=== PATIENT | female | born 1960 | race Hispanic/Latino ===

== ENCOUNTER 2017-02-02 13:50 | Inpatient (IN) | payer MEDICAID, SELFPAY ==
--- NOTE | 2017-02-02 14:43 | RAD ---
RADIOGRAPH CHEST 1 VIEW: ATTENTION MINNIE IN BILLING: Despite the entry in [employer], [employer], and [employer], this is a 1 view study, not a 2 view. HISTORY: 66-year-old female with cough. FINDINGS: There are no air space densities, pulmonary edema, pneumothorax, or cardiomegaly. The lateral costo phrenic angles are sharp. IMPRESSION: No acute cardiopulmonary findings. thomas POS: [facility]
[2017-02-02 14:50] LABS: #Basophils 0.1 thou/uL (0.0-0.2); #Eosinphils 0.1 thou/uL (0.0-0.7); #Lymphocytes 2.6 thou/uL (1.20-3.40); #Monocytes 0.8 thou/uL (0.11-0.59); #Neutrophils 10.5 thou/uL (1.40-6.50); %Basophils 0.5 % (0.0-1.0); %Eosinophils 0.5 % (0.0-10.0); %Lymphocytes 18.6 % (21.0-51.0); %Monocytes 5.5 % (0.0-10.0); Mean Platelet Volume 7.8 fL (7.4-10.4); Red Blood Cell (RBC) Count 4.89 mill/uL (4.20-5.40); White Blood Cell (WBC) Count 13.9 thou/uL (4.8-10.8)
[2017-02-02 15:10] LABS: ALT (SGPT) 9 U/L (8-55); AST (SGOT) 15 U/L (5-34); Alkaline Phosphatase 102 U/L (40-150); Anion Gap 15 mmol/L (10-20); BUN (Urea Nitrogen) 39 mg/dL (9.8-20.1); Bilirubin, Total 0.6 mg/dL (0.2-1.2); Calc. Creatinine Clearance 0 mL/min (70-130); Calcium 10.5 mg/dL (7.8-10.44); Carbon Dioxide 26 mmol/L (22-29); Chloride 100 mmol/L (98-107); Estimated GFR-MDRD 47; Globulin 4.1 g/dL (2.4-3.5); Protein, Total 8.5 g/dL (6.0-8.3)
--- NOTE | 2017-02-02 15:29 | RAD ---
RADIOGRAPH NECK SOFT TISSUES TWO VIEWS: History: 56-year-old female with throat pain and dysphagia for several days. FINDINGS: No prevertebral, retropharyngeal, supraglottic, or epiglottic soft tissue swelling. The cervical por tion of the trachea appears to be patent and clear. No radiopaque foreign body. Incidentally, moderately large anterior endplate marginal osteophytes protrude into the prevertebral space at C5-6. No radiopaque foreign body. IMPRESSION: No acute findings. POS: [facility]
--- NOTE | 2017-02-02 16:05 | CT ---
CT HEAD WITHOUT CONTRAST: 02/02/17 Multiple axial tomograms obtained through the head without IV enhancement. HISTORY: Facial droop. Comparison made to CT of 07/16/16. Ventricles have normal size and position. There is abnormal lucency in the brain stem at the level of the cerebellar peduncles to the left of midline. This is concerning for brain stem infarct. A similar lucency was seen on the prior exam, al though this is more prominent today. Suggests further evaluation with MRI to better evaluate this sissy cency. There are moderately severe chronic ischemic white matter changes in both cerebral hemispheres. Prob able old focal cortical infarct in the right anterior frontal cortex. Old occipital lobe infarct whi ch was present previously. No evidence of hemorrhage or mass effect. IMPRESSION: 1. Lucency in the brain stem at the level of the cerebellar peduncles to the left of midline, w orrisome for brain stem infarct. 2. Chronic severe white matter changes and evidence of old right frontal lobe infarct and a lar ge area of encephalomalacia involving the left occipital lobe. Recommend MRI to assess the brain stem and also assess for acute lacunar infarcts which may not be a pparent given setting of severe chronic ischemic white matter change. POS: [place]
[2017-02-02] MEDS ORDERED: Morphine Sulfate 2 MG/ML SYRINGE ONE (16:10)
[2017-02-02] MEDS ORDERED: cefTRIAXone\\ROCEPHIN 1 GM VIAL ONE (16:10)
[2017-02-02] MEDS ORDERED: Ondansetron HCl/PF 4 MG/2 ML Vial ONE (16:10)
--- NOTE | 2017-02-02 18:09 | RAD ---
PORTABLE CHEST: 02/02/17 HISTORY: Productive cough. The lungs are clear. No evidence of infiltrate. The heart and mediastinum unremarkable. Vascular mar kings are normal. IMPRESSION: Unremarkable portable chest. POS: [facility]
[2017-02-02] MEDS ORDERED: Ondansetron HCl/PF 4 MG/2 ML Vial IVP PRN ×2 (22:02→22:04)
[2017-02-02] MEDS ORDERED: Acetaminophen 325 MG TAB PO PRN ×2 (22:02→22:04)
[2017-02-02] MEDS ORDERED: Ondansetron ODT 4 MG TAB SL PRN (22:04)
[2017-02-02] MEDS ORDERED: Dextrose 5% in Water 1,000 ML IV PRN (22:07)
[2017-02-02] MEDS ORDERED: HumaLOG 300 UNITS/3 ML VIAL SC PRN ×2 (22:07)
[2017-02-02] MEDS ORDERED: Dextrose 50% Abboject 50 ML SYRINGE SLOW IVP PRN (22:07)
[2017-02-02] MEDS ORDERED: Dextrose 5 %-0.45 % NaCl 1,000 ML IV SCH (22:15)
[2017-02-02] MEDS ORDERED: cefTRIAXone\\ROCEPHIN 1 GM in Sodium Chloride 0.9% 100 ML IVPB SCH (22:15)
[2017-02-02] MEDS: Sodium Chloride 0.9% 1,000 ML IV SCH (22:42)
[2017-02-02] MEDS: Azithromycin 500 MG in Sodium Chloride 0.9% 250 ML 250 ML IVPB SCH (22:42)
[2017-02-02] MEDS: HYDROcodone/Acetaminophen 5/325 mg Tablet PO PRN (23:00)
[2017-02-02] MEDS: Diabetic Tussin 200 MG/10 ML UDCUP PO PRN (23:40)
--- NOTE | 2017-02-03 01:27 | HP ---
DATE OF ADMISSION: 02/02/2017 CHIEF COMPLAINT: Cough, sore throat, chest congestion. HISTORY OF PRESENT ILLNESS: Patient is a 56-year-old female with past medical history of hypertension, diabetes mellitus type 2, stroke, dysphagia, arthritis , came to the ER because of cough and sore throat. Cough is present for the last 3 days, coughing with some sputum production, with some dyspnea also, sputum white in color, complains of sore throat from coughing. Denies any fever , but complains of chills, denies any chest pain, denies any dizziness, denies any lightheadedness. Denies any headache, denies any nausea. Denies any vomiting. PAST MEDICAL HISTORY: As per HPI. PAST SURGICAL HISTORY: PEG tube, . SOCIAL HISTORY: Denies smoking, denies alcohol, denies any drugs. FAMILY HISTORY: Denies any heart problems. REVIEW OF SYSTEMS: Constitutional: Positive for chills. Denies fever. Eyes: No vision problems. Ears: Denies hearing loss. Neck: Denies neck pain. Cardiovascular system: Denies any chest pain. Throat: Positive for throat pain. Cardiovascular: Denies any chest pain, denies palpitations. Respiratory system: Positive for cough and sputum production. Integument: Denies any rash. Psychiatric: Denies anxiety. Musculoskeletal: Denies any joint deformities. All other review of systems are reviewed and are negative. PHYSICAL EXAMINATION: CONSTITUTIONAL/VITAL SIGNS: At the time of H and P performed, blood pressure is 140/70, afebrile, pulse ox 97%. GENERAL: This patient appears tired. Anterior naris patent. Nose normal. Ears normal. Teeth intact. Oral cavity, throat postnasal drainage seen. No erythema or no exudates seen. Nares, slight erythema present. No exudates seen. NECK: Supple. No JVD. CARDIOVASCULAR SYSTEM: S1, S2 present. Regular rate and rhythm. No murmurs, no rubs, no gallops. RESPIRATORY SYSTEM: To system Positive for rhonchi and wheezing. No erythema is seen. GASTROINTESTINAL: Abdomen is soft, nontender. Positive for PEG tube. MUSCULOSKELETAL: No edema. CRANIAL NERVOUS SYSTEM: Awake, follows commands. Speech clear. PSYCHIATRIC: Mood is appropriate at this time. LABORATORY DATA: At the time of H and P performed, white count 13.9, hemoglobin 14.2, platelet count is 303. BMP showed sodium 137, potassium 4.3, chloride 100, CO2 of 23, BUN 39, creatinine 1.19. Toxicology: Beta- hydroxybutyrate is 1.38. CT head without contrast, positive for lucency in the brainstem at the level of cerebellar particles, peduncles were reason for brainstem infarct, chronic severe white matter changes seen. no acute findings. ASSESSMENT AND PLAN: The patient is a 56-year-old female: 1. Acute bronchitis. Plan to start patient on broad-spectrum antibiotics. Plan to consult. Plan to monitor the patient closely and we will do p.r.n. breathing treatments and p.r.n. cough suppressants also. 2. Sore throat, possible secondary to coughing. Monitor the patient. Plan to check strep throat culture also. 3. Rule out stroke and history of cerebrovascular accident plus dysphagia. Continue tube feeds. Monitor patient closely. Plan to do MRI brain to rule out any new stroke and we will follow the patient. We will get PT, OT, speech therapy, and rehabilitation evaluation also. If repeat MRI is positive, then we will consult Neurology also. 4. Hypertension. Monitor blood pressure. Continue home blood pressure medications. 5. Diabetes mellitus. Monitor blood sugars. We will do insulin sliding scale. The case was discussed in detail with the patient. TYLER
[2017-02-03 06:57] LABS: Anion Gap 11 mmol/L (10-20); BUN (Urea Nitrogen) 22 mg/dL (9.8-20.1); Calc. Creatinine Clearance 77 mL/min (70-130); Calcium 8.7 mg/dL (7.8-10.44); Carbon Dioxide 23 mmol/L (22-29); Chloride 106 mmol/L (98-107); Estimated GFR-MDRD 88
[2017-02-03 06:59] LABS: #Basophils 0.1 thou/uL (0.0-0.2); #Eosinphils 0.1 thou/uL (0.0-0.7); #Lymphocytes 3.3 thou/uL (1.20-3.40); #Monocytes 0.8 thou/uL (0.11-0.59); #Neutrophils 5.4 thou/uL (1.40-6.50); %Basophils 0.7 % (0.0-1.0); %Eosinophils 1.1 % (0.0-10.0); %Lymphocytes 33.9 % (21.0-51.0); %Monocytes 8.5 % (0.0-10.0); Hematocrit 32.4 % (36.0-47.0); Mean Platelet Volume 7.6 fL (7.4-10.4); Red Blood Cell (RBC) Count 3.75 mill/uL (4.20-5.40); White Blood Cell (WBC) Count 9.7 thou/uL (4.8-10.8)
[2017-02-03] MEDS ORDERED: FLU VACC QS2017-18 36 mo. & older 0.5 ML SYRINGE IM ONE (09:00)
[2017-02-03] MEDS: Diabetic Tussin 200 MG/10 ML UDCUP PO PRN ×3 (09:31→22:51)
[2017-02-03] MEDS: HYDROcodone/Acetaminophen 5/325 mg Tablet PO PRN ×2 (09:32→17:28)
[2017-02-03] MEDS: Heparin 5,000 UNITS/ML VIAL SC SCH ×4 (09:33→21:08)
[2017-02-03] MEDS ORDERED: Aspirin 325 MG TAB PER TUBE SCH (10:27)
--- NOTE | 2017-02-03 10:47 | PDOC.PN ---
- Subjective Encounter Start Date: 02/03/17 Encounter Start Time: 10:45 Ms. Ty is still having some pain in her neck, and a sore throat. She also notes some abdominal pain as well. - Objective MAR Reviewed: Yes Vital Signs & Weight: Vital Signs (12 hours) Temp Pulse Resp BP Pulse Ox 02/03/17 07:39 98.2 F 78 16 107/67 98 02/03/17 07:05 97 02/03/17 07:03 75 16 97 02/03/17 03:50 97.9 F 72 20 108/61 94 L 02/03/17 02:41 69 14 97 02/02/17 23:53 98.4 F 98 20 152/85 H 95 Weight Weight 117 lb 3.2 oz I&O: 02/02/17 02/03/17 02/04/17 06:59 06:59 06:59 Intake Total 2230 Output Total 0 Balance 2230 Result Diagrams: 02/03/17 05:45 02/03/17 05:45 Additional Labs: Accuchecks 02/03/17 02/02/17 02/02/17 05:45 23:59 21:45 POC Glucose 107 154 H 69 L Phys Exam - Physical Examination HEENT: PERRLA Respiratory: no wheezing, no rales, no rhonchi, clear to auscultation bilateral Cardiovascular: RRR, no significant murmur Gastrointestinal: soft, non-tender, positive bowel sounds Musculoskeletal: no edema Dx/Plan (1) Bronchitis, acute Code(s): J20.9 - ACUTE BRONCHITIS, UNSPECIFIED Status: Acute (2) DM2 (diabetes mellitus, type 2) Status: Chronic Comment: (3) Dysphagia as late effect of cerebrovascular accident (CVA) Code(s): I69.391 - DYSPHAGIA FOLLOWING CEREBRAL INFARCTION Status: Chronic (4) HLD (hyperlipidemia) Code(s): E78.5 - HYPERLIPIDEMIA, UNSPECIFIED Status: Chronic Qualifiers: (5) HTN (hypertension) Code(s): I10 - ESSENTIAL (PRIMARY) HYPERTENSION Status: Chronic Qualifiers: - Plan * Sore throat and neck pain- ? etiology, this may be due to Cervical spine disc disease * Possible brain stem CVA- will follow-up with MRI * Abdominal pain- ? due to coughing- will check an ultrasound * HTN- blood pressure- on the lower side- will continue IV hydration * DM - diabetes- blood glucose is stable * Bronchitis-continue Azithromycin and Rocephin
--- NOTE | 2017-02-03 14:39 | ULT ---
ABDOMINAL ULTRASOUND: Date: 02-03-17 History: Abdominal pain. FINDINGS: Gallbladder is not visualized consistent with patient's report history of prior cholecyste ctomy. The common duct measures 0.5 cm in diameter which is within normal limits. Visualized portions of the pancreas, visualized portions of the IVC, liver, spleen, bilateral kidney s demonstrate a normal sonographic appearance. The right kidney measures 9.7 cm in length. The left kidney measures 5.7 cm in length. There is mild atherosclerotic plaque seen within the abdominal aorta. IMPRESSION: 1. Cholecystectomy. 2. Atherosclerotic plaque in the abdominal aorta. POS: [facility]
[2017-02-03 14:50] VITALS: BMI 20.1
[2017-02-03] MEDS: Metoclopramide HCl 10 MG/10 ML UDCUP PER TUBE SCH ×3 (17:24→21:08)
[2017-02-03] MEDS: cefTRIAXone\\ROCEPHIN 1 GM in Sodium Chloride 0.9% 100 ML IVPB SCH ×2 (17:51→19:05)
[2017-02-03] MEDS: Sodium Chloride 0.9% 1,000 ML IV SCH (19:03)
--- NOTE | 2017-02-03 20:16 | MRI ---
EXAM: BRAIN MRI WITHOUT CONTRAST 02/03/17 HISTORY: CVA. Right sided facial weakness and numbness. COMPARISON: None. TECHNIQUE: Brain MRI is performed without gadolinium administration. Multisequential, multiplanar imaging is pe rformed. FINDINGS: No hemorrhage on the axial gradient echo sequence. Central arterial flow voids are maintained. Absent restricted diffusion. The calvarium has a normal marrow signal intensity. Midline brain parenchymal structures are unremar kable, with the exception of the medial left occipital lobe. With regards to the medial left occipit al lobe, there is gliotic and malacic change. There are scattered T2 and FLAIR white matter hyperint ensities, likely due to chronic small vessel ischemic change. Bilateral mucosal thickening in the paranasal sinuses. Partial opacification of the right ethmoid ai r cells. IMPRESSION: 1. Paranasal sinuses and right mastoid air cell opacification as above. 2. Absent restricted diffusion. No acute infarct. 3. Chronic small vessel ischemic change white matter. 4. Malacic and gliotic changes involving the left occipital lobe. POS: [facility]
[2017-02-03] MEDS ORDERED: Pravastatin Sodium 40 MG TAB PER TUBE SCH (21:00)
[2017-02-03] MEDS ORDERED: Atorvastatin Calcium 10 MG TAB PER TUBE SCH (21:00)
[2017-02-03] MEDS: Azithromycin 500 MG in Sodium Chloride 0.9% 250 ML 250 ML IVPB SCH (21:08)
[2017-02-03] MEDS: Famotidine/PF 20 mg/2ml Vial SLOW IVP SCH (21:09)
[2017-02-04] MEDS: Sodium Chloride 0.9% 1,000 ML IV SCH (01:18)
[2017-02-04 07:49] VITALS: TEMP 98.5
[2017-02-04 08:45] VITALS: BP 122/67
[2017-02-04] MEDS: Metoclopramide HCl 10 MG/10 ML UDCUP PER TUBE SCH (08:56)
[2017-02-04] MEDS: Famotidine/PF 20 mg/2ml Vial SLOW IVP SCH (08:58)
[2017-02-04] MEDS: Heparin 5,000 UNITS/ML VIAL SC SCH (08:58)
[2017-02-04] MEDS ORDERED: Atenolol 50 MG TAB PER TUBE SCH (09:00)
[2017-02-04] MEDS ORDERED: Aspirin 81 mg Enteric Coated Tablet PER TUBE SCH (09:00)
[2017-02-04] MEDS ORDERED: Clopidogrel Bisulfate 75 MG TAB PER TUBE SCH (09:00)
[2017-02-04] MEDS ORDERED: CLOPIDOGREL BISULFATE 75 MG PER TUBE SCH (09:00)
--- NOTE | 2017-02-04 09:17 | CON ---
DATE OF CONSULTATION: 02/03/2017 REFERRING PHYSICIAN: Dr. Freddy Dawn MD REASON FOR CONSULTATION: Dysarthria. HISTORY OF PRESENT ILLNESS: Ms. Rosenberg is a pleasant 56-year-old female, who has been cons ulted for evaluation of dysarthria and to rule out stroke. History is obtained from daughter, who w as present at the bedside. Daughter reports that the patient has a history of stroke in 2007, as we ll as June or July of this year, her most recent stroke in this year resulted in the right-sided w eakness, left-sided numbness, dysarthria, and dysphagia. She had required a PEG tube placement due to the dysphagia. She has episodes of aspiration even with her own saliva. She has not been able t o take anything by mouth. Since that time, she reports that over the past 2 days, she has been havi ng a persistent cough with productive phlegm. This was not getting better and thus they decided to bring her to the [facility] for further evaluation. She has not noticed any worsenin g of numbness or weakness in her upper and lower extremities. There was no changes in her vision. She has not complained of any headache, chest pain, palpitation, or difficulty with breathing. PAST MEDICAL HISTORY: Significant for hypertension, diabetes, history of stroke, dysphagia, resulti ng in a requirement for PEG tube placement, and arthritis. PAST SURGICAL HISTORY: Significant for PEG tube placement and . SOCIAL HISTORY: She does not smoke, drink alcohol, or use illicit drugs. She is currently living w ith her family. FAMILY HISTORY: Noncontributory. CURRENT MEDICATIONS: Please review MAR. ALLERGIES: No known drug allergies. REVIEW OF SYSTEMS: As mentioned in the HPI, otherwise negative. PHYSICAL EXAMINATION: VITAL SIGNS: Blood pressure 113/57, pulse of 73, temperature 98.1, respirations of 18, and O2 satur ations of 96% on room air. GENERAL: Cachectic appearing female in no apparent distress. RESPIRATORY: Clear to auscultation bilaterally. CARDIOVASCULAR: Regular rate and rhythm. NEUROLOGIC: Mental status: The patient is awake, alert, and oriented x3. Speech and language: Mi ldly dysarthric speech noted. Cranial nerves: Pupils are 3 mm and reactive. Visual denis are int act. Extraocular muscles are intact. No nystagmus is noted. Face is symmetric. Tongue and uvula midline. Motor exam showed normal tone and bulk with 4/5 strength in the right upper extremity and 3/5 strength in the right lower extremity, and 5/5 strength in left upper and left lower extremity. Sensory: Diminished sensation on the left side compared to the right side. Deep tendon reflexes h yperreflexic in both upper and lower extremities. Babinski: Plantar responses flexion bilaterally. Coordination intact to [id number] and finger tapping bilaterally. LABORATORY DATA: Reviewed, which included CBC, BMP, which is significant for hemoglobin 10.8, hemat ocrit 32.4, otherwise unremarkable. IMAGING STUDIES: MRI brain without contrast was reviewed, which showed no acute intracranial abnorm ality. IMPRESSION: 1. Cough and sore throat, likely acute bronchitis. 2. Dysarthria, due to recent stroke. Ms. Rosenberg is a pleasant 56-year-old female, who presented with the persistent cough and so re throat with nonproductive sputum. This is likely secondary to acute bronchitis. I have reviewed her MRI brain, which showed no acute intracranial abnormality. At this time, we will recommend con tinuing current antiplatelet therapy. Continue supportive care. Continue current medical managemen t. No further neurological workup needed from my standpoint. Thank you for consultation.
--- NOTE | 2017-02-04 15:52 | DIS ---
DATE OF ADMISSION: 02/02/2017 DATE OF DISCHARGE: 02/04/2017 PRIMARY CARE PHYSICIAN: Dr. Janene Jackson. DISCHARGE DIAGNOSES: 1. Acute bronchitis. 2. Right mastoiditis. 3. Odynophagia. 4. 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 5. History of cerebrovascular disease. 6. Diabetes mellitus type 2. 7. Essential hypertension. CONSULTATIONS: Dr. Rica Garrido with Neurology. PROCEDURES: 1. Brain MRI with no acute ischemic event. 2. Abdominal ultrasound, significant for prior cholecystectomy, no acute intra-abdominal pathology. HISTORY AND PHYSICAL: Ms. Shakira Wallace is a 56-year-old Latin-Polish female, who was presented to the emergency department on 02/02/2017 for complaints of sore throat and difficulty swallowing aleksey use of the pain. Labs were fairly stable except for beta hydroxybutyrate elevated at 1.38. CT scan of the head was p ositive for lucency of the brainstem at the level of the cerebral pedicles and were concerned for br ainstem infarct. The patient was subsequently admitted for further workup. HOSPITAL COURSE: The patient was seen and examined by Dr. Minaya and admitted to the hospital. MRI was ordered, PT, OT and speech therapy and rehab evaluation was also ordered. Neurology was consulted. Overall, the patient remained stable, sore throat was improved, MRI was performed and later resulted as negative for acute infarct. Abdominal ultrasound done for bleeding, abdominal pain was unremark able. Diet remained stable. She tolerated her tube feeds through the day and on 02/04/2017 was see n by Dr. Garrido. He felt this was all secondary to bronchitis with no acute neurologic event and nega tive MRI and cleared for discharge home. Patient's sore throat was improved; she was tolerating her medicines and her tube feeds, and was sta ble for discharge. MRI did show right mastoiditis and mastoid air cell opacification. PHYSICAL EXAMINATION: The patient was seen and examined on the date of discharge. Discharge plan and disposition were discussed with the patient and her son [id number] at the [facility]. DISCHARGE MEDICATIONS: 1. Augmentin elixir 900 mg p.o. b.i.d. for 10 days. 2. Aspirin 81 mg per feeding tube daily. 3. Atenolol 50 mg per feeding tube b.i.d. 4. Plavix 75 mg per feeding tube daily. 5. Lisinopril 10 mg per feeding tube daily. 6. Reglan 5 mg per feeding tube q.4 hours p.r.n. nausea. 7. Pravastatin 40 mg per tube at bedtime. 8. Metformin 1000 mg per feeding tube b.i.d. 9. Prednisolone 20 mg every morning, decreased by 5 mg daily until tapered off. FOLLOWUP APPOINTMENTS: Primary care physician within a week. DISCHARGE CONDITION: Stable. DISPOSITION: Being discharged home via private vehicle. Return to the emergency department for worsening symptoms. test engineering manager was able to secure her spon sored tube feeds for 30-60 days if they were interested.
== END 2017-02-04 11:37 | disposition home or self-care (01) | DRG 202 ==
LOC: ERS 13:50 → 2SE 21:26
PROVIDERS: ADMIT Internal Medicine; ATTEND Internal Medicine
DX: J20.9 Acute bronchitis, unspecified (principal); I69.351 Hemiplegia and hemiparesis following cerebral infarction affecting right dominant side; I10 Essential (primary) hypertension; I69.391 Dysphagia following cerebral infarction; Z93.1 Gastrostomy status; H70.91 Unspecified mastoiditis, right ear; E11.9 Type 2 diabetes mellitus without complications; I69.322 Dysarthria following cerebral infarction; Z23 Encounter for immunization; E78.5 Hyperlipidemia, unspecified; E86.0 Dehydration
CPT/HCPCS: 36415; 36416; 70360; 70450; 70551; 71010; 71020; 76700; 80048; 80053; 82010; 85025; 87040; 90471; 90682; 94640; A4216; G0008; G8978-GP-CK; G8979-GP-CI; G8987-GO-CL; G8988-GO-CJ; G8999-GN-CJ; G9186-GN-CI; J0456; J0696; J1644; J2270; J2405; J2920; J7050; J7620; Q2036; S0028

== ENCOUNTER 2017-03-31 17:36 | Emergency (ER) | payer MEDICAID, SELFPAY ==
[~2017-03-31 17:36] MED LIST: ISOVUE-370 76%-LOCM 1 ML ONE
[2017-03-31 18:50] LABS: Hematocrit 42.9 % (36.0-47.0); Mean Platelet Volume 7.5 fL (7.4-10.4); Red Blood Cell (RBC) Count 4.79 mill/uL (4.20-5.40); White Blood Cell (WBC) Count 24.5 thou/uL (4.8-10.8)
[2017-03-31 19:05] LABS: ALT (SGPT) 15 U/L (8-55); AST (SGOT) 21 U/L (5-34); Alkaline Phosphatase 103 U/L (40-150); Anion Gap 17 mmol/L (10-20); BUN (Urea Nitrogen) 14 mg/dL (9.8-20.1); Bilirubin, Total 0.8 mg/dL (0.2-1.2); Calc. Creatinine Clearance 0 mL/min (70-130); Calcium 10.6 mg/dL (7.8-10.44); Carbon Dioxide 25 mmol/L (22-29); Chloride 97 mmol/L (98-107); Estimated GFR-MDRD 77; Lipase 12 U/L (8-78); Protein, Total 8.5 g/dL (6.0-8.3)
[2017-03-31 19:16] LABS: Band 16 % (5-11); Neutrophil 74 % (42-75); Polychromasia SLIGHT = 2-3 cells (100X) (0-2/hpf); Vacuoles SLIGHT
--- NOTE | 2017-03-31 21:30 | RAD ---
AP VIEW CHEST 03/31/17 HISTORY: Nausea and vomiting. Comparison made to previous exam from 02/02/17. AP view chest demonstrates the lungs to be well aerated. No evidence of active intrathoracic disease is seen. No evidence of effusions, pneumonia, or pneumothorax seen. IMPRESSION: Unremarkable AP view chest. POS: [facility]
--- NOTE | 2017-03-31 22:45 | CT ---
CONTRAST ENHANCED CT IMAGES ABDOMEN AND PELVIS 03/31/17 HISTORY: Abdominal pain, nausea and vomiting. Contrast enhanced CT images of the abdomen and pelvis demonstrate the lung bases to be unremarkable. There is gastrostomy tube in place. No evidence of free intraperitoneal air is seen. The liver and spleen are unremarkable. The gallbladder has been surgically removed. The pancreas is u nremarkable. Adrenal glands and kidneys are unremarkable. A tiny mid pole left renal calculus is seen with diameter measuring 1 to 2 mm without evidence of hydronephrosis. No dilated loops of small elvin l seen. The colon is unremarkable. No evidence of pelvis masses seen. IMPRESSION: 1. No evidence of bowel obstruction or ileus seen. 2. Tiny nonobstructing mid pole left renal calculus. POS: [facility]
[2017-03-31 22:51] LABS: Bilirubin Negative (Negative); Blood, Urine Negative (Negative); Glucose, Urine (Dipstick) Negative (Negative); Ketone, Urine 15 mg/dL (Negative); Nitrite Negative (Negative); Protein, Urine (Dipstick) Negative (Neg-Trace)
[2017-03-31 22:53] LABS: Bacteria/HPF 1+ HPF (None Seen); Hyaline Casts/LPF 7-10 HYALINE CAST LPF (0-3 Hyaline); Squamous Epithelial 0-3 HPF (0-3)
[2017-03-31 23:01] LABS: RBC/HPF 0-3 HPF (0-3)
[2017-03-31] MEDS ORDERED: Acetaminophen 325 MG TAB ONE (23:38)
== END 2017-03-31 23:56 | disposition home or self-care (01) ==
LOC: ERS 17:36
DX: N39.0 Urinary tract infection, site not specified (principal); I25.2 Old myocardial infarction; E11.9 Type 2 diabetes mellitus without complications; E78.5 Hyperlipidemia, unspecified; I10 Essential (primary) hypertension; M19.90 Unspecified osteoarthritis, unspecified site; F32.9 Major depressive disorder, single episode, unspecified; Z79.84 Long term (current) use of oral hypoglycemic drugs; Z79.82 Long term (current) use of aspirin; Z79.899 Other long term (current) drug therapy
CPT/HCPCS: 36415; 71010; 74177; 80053; 81003; 81015; 83690; 85025; 93005; 96361; 96374; J0696

== ENCOUNTER 2018-09-16 02:02 | Emergency (ER) | payer SELFPAY ==
[2018-09-16] MEDS ORDERED: Pantoprazole 40 MG VIAL ONE (02:32)
[2018-09-16] MEDS ORDERED: Ondansetron PF 4 MG/2 ML Vial ONE ×2 (02:32→05:45)
[2018-09-16 02:55] LABS: #Basophils 0.1 thou/uL (0.0-0.2); #Eosinphils 0.1 thou/uL (0.0-0.7); #Lymphocytes 4.1 thou/uL (1.20-3.40); #Monocytes 0.7 thou/uL (0.11-0.59); #Neutrophils 4.6 thou/uL (1.40-6.50); %Basophils 0.6 % (0.0-1.0); %Eosinophils 1.5 % (0.0-10.0); %Lymphocytes 42.9 % (21.0-51.0); %Monocytes 7.1 % (0.0-10.0); %Neutrophils 47.9 % (42.0-75.0); Hemoglobin 12.5 g/dL (12.0-16.0); Mean Corpuscular HGB CONC 33.2 g/dL (32.0-36.0); Mean Corpuscular Hemoglobin 27.1 pg (27.0-31.0); Mean Corpuscular Volume 81.5 fL (78.0-98.0); Mean Platelet Volume 8.5 fL (7.4-10.4); Platelet Count 200 thou/uL (130-400); RBC Distribution Width 12.9 % (11.5-14.5); Red Blood Cell (RBC) Count 4.63 mill/uL (4.20-5.40); White Blood Cell (WBC) Count 9.5 thou/uL (4.8-10.8)
[2018-09-16 03:11] LABS: ALT (SGPT) 9 U/L (8-55); AST (SGOT) 12 U/L (5-34); Alkaline Phosphatase 105 U/L (40-150); Anion Gap 13 mmol/L (10-20); BUN (Urea Nitrogen) 26 mg/dL (9.8-20.1); Bilirubin, Total 0.4 mg/dL (0.2-1.2); CK (CPK) 120 U/L (29-168); Calc. Creatinine Clearance 0 mL/min (70-130); Calcium 10.2 mg/dL (7.8-10.44); Carbon Dioxide 25 mmol/L (22-29); Chloride 101 mmol/L (98-107); Estimated GFR-MDRD 61; Globulin 3.8 g/dL (2.4-3.5); Glucose 194 mg/dL (70-105); Lipase 19 U/L (8-78); Potassium 4.2 mmol/L (3.5-5.1); Protein, Total 7.8 g/dL (6.0-8.3); Sodium 135 mmol/L (136-145)
[2018-09-16 04:00] LABS: Bilirubin Negative (Negative); Blood, Urine Negative (Negative); Clarity CLEAR (Clear); Glucose, Urine (Dipstick) 250 mg/dL (Negative); Leukocyte Small (Negative); Nitrite Negative (Negative); Protein, Urine (Dipstick) Negative (Neg-Trace); Specific Gravity, Urine 1.017 (1.002-1.036); Urobilinogen 0.2 mg/dL (0.2-1.0)
[2018-09-16 04:21] LABS: Bacteria/HPF Rare-Few HPF (None Seen); RBC/HPF 0-3 HPF (0-3); Squamous Epithelial 0-3 HPF (0-3); Transitional Epithelial 0-3 HPF (0-3); Trichomonas/HPF None Seen HPF (None Seen); WBC/HPF 0-3 HPF (0-3); Yeast-All Forms None Seen HPF (None Seen)
[2018-09-16] MEDS ORDERED: Morphine 2 MG/ML SYRINGE ONE (05:44)
--- NOTE | 2018-09-16 08:40 | CT ---
PRELIMINARY REPORT/[facility]/EMERGENCY AFTER HOURS PROCEDURE: EXAM: CT Chest With Contrast EXAM DATE/TIME: 09/16/2018 3:28 AM CLINICAL HISTORY: 58 years old, female; Abdominal pain; Right-sided chest pain; Prior surgery; Patient HX: 58 presents to ED C/O abd pain x4 days, localized to the R side that radiates proximally that has worsened today. PT has an associated cough and diarrhea. PT reports feeling nauseated, but denies emesis. PT is not able to swallow well, but this is chronic. PT has a feeding tube and a HX of stroke (cannot feel left side-baseline). TECHNIQUE: Imaging protocol: Axial computed tomography images of the chest with intravenous contrast. Coronal reformatted images were created and reviewed. COMPARISON: No relevant prior studies available. FINDINGS: Lungs: Normal. No consolidation. No masses. Pleural space: Normal. No pneumothorax. No pleural effusion. Heart: Normal. No cardiomegaly. No pericardial effusion. Aorta: Normal. No aortic aneurysm. Lymph nodes: Unremarkable. No enlarged lymph nodes. Bones/joints: Unremarkable. No acute fracture. Soft tissues: Unremarkable. IMPRESSION: No evidence of active disease in the chest. EXAM: CT Abdomen and Pelvis With Contrast EXAM DATE/TIME: 09/16/2018 3:28 AM CLINICAL HISTORY: 58 years old, female; Abdominal pain; Right-sided chest pain; Prior surgery; Patient HX: 58 presents to ED C/O abd pain x4 days, localized to the R side that radiates proximally that has worsened today. PT has an associated cough and diarrhea. PT reports feeling nauseated, but denies emesis. PT is not able to swallow well, but this is chronic. PT has a feeding tube and a HX of stroke (cannot feel left side-baseline). TECHNIQUE: Imaging protocol: Axial computed tomography images of the abdomen and pelvis with intravenous contras t. Coronal reformatted images were created and reviewed. COMPARISON: No relevant prior studies available. FINDINGS: Tubes, catheters and devices: There is a gastrostomy tube which courses into the stomach in satisfact ory position. ABDOMEN: Liver: There are no focal liver lesions identified. Gallbladder and bile ducts: There has been a cholecystectomy. There is no common bile duct dilation. Pancreas: The pancreas appears normal. No ductal dilatation. Spleen: The spleen is normal. Adrenals: The adrenal glands are normal. Kidneys and ureters: The kidneys appear normal. No hydronephrosis. Stomach and bowel: The stomach is normal. There is no evidence of intestinal perforation or obstruction. The colon is normal. Appendix: No evidence of appendicitis. PELVIS: Bladder: The bladder is normal. Reproductive: The uterus is normal. ABDOMEN and PELVIS: Intraperitoneal space: Normal. No free air. No significant fluid collection. Bones/joints: No acute fracture. No dislocation. Soft tissues: Unremarkable. Vasculature: Normal. No abdominal aortic aneurysm. Lymph nodes: Normal. No enlarged lymph nodes. IMPRESSION: No acute abdominal pelvic pathology. Thank you for allowing us to participate in the care of your patient. Dictated and Authenticated by: Bi Rocha MD 09/16/2018 4:14 AM Central Time ([place] & [place]) FINAL REPORT CHEST CT WITH CONTRAST ABDOMEN CT WITH CONTRAST PELVIC CT WITH CONTRAST: Date: 09/16/18 HISTORY: Right-sided chest pain. Abdominal pain. COMPARISON: None. FINDINGS: CHEST CT: No mediastinal mass, lymphadenopathy, or hematoma. No consolidation or pleural effusion. No pneumotho rax. Trachea and central bronchi are patent. ABDOMEN CT: Surgically absent gallbladder. Appropriate enhancement of the solid organs. No mesenteric mass, lymphadenopathy, free air, or free fluid. Limited evaluation of the alimentary canal by technique. Percutaneous gastric feeding tube is identif ied. No evidence of bowel obstruction. Appendix is not appreciated. No inflammation of the cecal apex . CT PELVIS: Bladder and pelvic structures are unremarkable. IMPRESSION: No acute abnormality in the chest, abdomen, or pelvis. This report is in agreement with the preliminary report by Ed. POS: [facility]
[2018-09-16] MEDS ORDERED: ISOVUE-370 76%-LOCM 1 ML ONE (10:40)
== END 2018-09-16 06:19 | disposition home or self-care (01) ==
LOC: ERS 02:02
DX: R10.11 Right upper quadrant pain (principal); I25.2 Old myocardial infarction; E11.9 Type 2 diabetes mellitus without complications; E78.5 Hyperlipidemia, unspecified; I10 Essential (primary) hypertension; F32.9 Major depressive disorder, single episode, unspecified; Z79.899 Other long term (current) drug therapy; Z79.84 Long term (current) use of oral hypoglycemic drugs
CPT/HCPCS: 71260; 74177; 80053; 81003; 81015; 82550; 83690; 84484; 85025; 87086; 96361; 96372; 96374; 96375; 96376; C9113; J0500; J2270; J2405; Q9966

== ENCOUNTER 2018-12-20 18:41 | Emergency (ER) | payer SELFPAY ==
[2018-12-20 19:40] LABS: #Eosinphils 0.1 thou/uL (0.0-0.7); #Lymphocytes 2.6 thou/uL (1.20-3.40); #Monocytes 0.7 thou/uL (0.11-0.59); #Neutrophils 8.3 thou/uL (1.40-6.50); %Basophils 0.2 % (0.0-1.0); %Eosinophils 1.1 % (0.0-10.0); %Lymphocytes 22.3 % (21.0-51.0); %Monocytes 5.8 % (0.0-10.0); %Neutrophils 70.5 % (42.0-75.0); Hemoglobin 13.1 g/dL (12.0-16.0); Mean Corpuscular HGB CONC 34.4 g/dL (32.0-36.0); Mean Corpuscular Hemoglobin 28.7 pg (27.0-31.0); Mean Corpuscular Volume 83.6 fL (78.0-98.0); Mean Platelet Volume 7.7 fL (7.4-10.4); Platelet Count 252 thou/uL (130-400); RBC Distribution Width 12.3 % (11.5-14.5); Red Blood Cell (RBC) Count 4.57 mill/uL (4.20-5.40); White Blood Cell (WBC) Count 11.8 thou/uL (4.8-10.8)
[2018-12-20] MEDS ORDERED: Morphine 4 MG/ML VIAL ONE ×2 (19:41→21:14)
[2018-12-20] MEDS ORDERED: Ondansetron PF 4 MG/2 ML Vial ONE (19:41)
[2018-12-20 19:56] LABS: Bilirubin Negative (Negative); Blood, Urine Negative (Negative); Clarity Clear (Clear); Glucose, Urine (Dipstick) 150 mg/dL (Negative); Leukocyte Negative Leu/uL (Negative); Nitrite Negative (Negative); Protein, Urine (Dipstick) 20 mg/dL (Neg-Trace); Urobilinogen Normal mg/dL (Less than 2)
[2018-12-20 20:07] LABS: ALT (SGPT) 11 U/L (8-55); AST (SGOT) 13 U/L (5-34); Albumin 4.5 g/dL (3.5-5.0); Alkaline Phosphatase 106 U/L (40-150); Anion Gap 13 mmol/L (10-20); BUN (Urea Nitrogen) 20 mg/dL (9.8-20.1); Bilirubin, Total 0.3 mg/dL (0.2-1.2); Calc. Creatinine Clearance 0 mL/min (70-130); Calcium 10.1 mg/dL (7.8-10.44); Carbon Dioxide 27 mmol/L (22-29); Chloride 103 mmol/L (98-107); Estimated GFR-MDRD 71; Globulin 3.4 g/dL (2.4-3.5); Glucose 185 mg/dL (70-105); Lipase 17 U/L (8-78); Potassium 4.2 mmol/L (3.5-5.1); Protein, Total 7.9 g/dL (6.0-8.3); Sodium 139 mmol/L (136-145)
--- NOTE | 2018-12-20 20:53 | CT ---
CT abdomen and pelvis with IV contrast HISTORY: Abdominal pain. Bleeding around PEG tube. COMPARISON: 04/02/2017. FINDINGS: Mild scarring at the left lung base is stable. Balloon associated with the left upper quadr ant PEG is incompletely inflated. The balloon lies immediately superficial to the stomach wall, deep to the abdominal wall musculature and peritoneal lining. Gallbladder is surgically absent with associated distention of the biliary system. Solid organs are i ntact. No free air or free fluid. IMPRESSION: Left upper quadrant PEG Is now superficial to the gastric lumen, with the balloon partial ly deflated. Findings were called to Dr. Goodman in the emergency department at 204 hours. Code CR. Transcribed Date/Time: 12/20/2018 9:36 PM
--- NOTE | 2018-12-20 22:25 | RAD ---
Abdomen one view HISTORY: PEG tube replacement. FINDINGS: Contrast material placed through the left upper quadrant PEG conforms to the upper gastric body and the gastric fundus. No evidence of leak. Contrast within the urinary system is consistent with recent CT.
== END 2018-12-20 23:06 | disposition home or self-care (01) ==
LOC: ERS 18:41
DX: K94.23 Gastrostomy malfunction (principal); E78.5 Hyperlipidemia, unspecified; I10 Essential (primary) hypertension; F32.9 Major depressive disorder, single episode, unspecified; E11.9 Type 2 diabetes mellitus without complications; I25.2 Old myocardial infarction; Z79.891 Long term (current) use of opiate analgesic; Z79.84 Long term (current) use of oral hypoglycemic drugs; Z86.73 Personal history of transient ischemic attack (TIA), and cerebral infarction without residual deficits; Z79.899 Other long term (current) drug therapy
CPT/HCPCS: 43762; 51701; 74018; 74177; 80053; 81003; 83690; 84484; 85025; 93005; 96374; 96375; 96376; A4353; B4087; J2270; J2405; Q9966

== ENCOUNTER 2019-12-17 17:17 | Emergency (ER) | payer MEDICAID, SELFPAY ==
[~2019-12-17 17:17] MED LIST changes: -ISOVUE-370 76%-LOCM 1 ML ONE; +Iopamidol-370 76% 500 ML 1 ML ONE
[2019-12-17 18:17] LABS: #Basophils 0.1 thou/uL (0.0-0.2); #Eosinphils 0.3 thou/uL (0.0-0.7); #Monocytes 0.7 thou/uL (0.11-0.59); #Neutrophils 5.4 thou/uL (1.40-6.50); %Basophils 0.6 % (0.0-1.0); %Eosinophils 3.3 % (0.0-10.0); %Lymphocytes 31.8 % (21.0-51.0); %Monocytes 7.7 % (0.0-10.0); %Neutrophils 56.6 % (42.0-75.0); Hemoglobin 12.3 g/dL (12.0-16.0); Mean Corpuscular HGB CONC 33.1 g/dL (32.0-36.0); Mean Corpuscular Hemoglobin 27.2 pg (27.0-31.0); Mean Corpuscular Volume 82.2 fL (78.0-98.0); Mean Platelet Volume 8.7 fL (7.4-10.4); Platelet Count 232 thou/uL (130-400); RBC Distribution Width 12.6 % (11.5-14.5); Red Blood Cell (RBC) Count 4.54 mill/uL (4.20-5.40); White Blood Cell (WBC) Count 9.5 thou/uL (4.8-10.8)
[2019-12-17] MEDS ORDERED: Morphine 4 MG/ML VIAL ONE (18:30)
[2019-12-17] MEDS ORDERED: Ondansetron PF 4 MG/2 ML Vial ONE (18:30)
[2019-12-17 18:40] LABS: ALT (SGPT) 11 U/L (8-55); AST (SGOT) 11 U/L (5-34); Albumin 3.7 g/dL (3.5-5.0); Alkaline Phosphatase 108 U/L (40-110); Anion Gap 13 mmol/L (10-20); BUN (Urea Nitrogen) 19 mg/dL (9.8-20.1); Bilirubin, Total 0.4 mg/dL (0.2-1.2); Calc. Creatinine Clearance 0 mL/min (70-130); Calcium 9.4 mg/dL (7.8-10.44); Carbon Dioxide 26 mmol/L (22-29); Chloride 101 mmol/L (98-107); Estimated GFR-MDRD 55; Globulin 3.6 g/dL (2.4-3.5); Glucose 510 mg/dL (70-105); Lipase 25 U/L (8-78); Magnesium 1.8 mg/dL (1.6-2.6); Potassium 4.1 mmol/L (3.5-5.1); Protein, Total 7.3 g/dL (6.0-8.3); Sodium 136 mmol/L (136-145)
--- NOTE | 2019-12-17 20:39 | CT ---
CT ABDOMEN AND PELVIS WITH IV CONTRAST: Date: 12-17-2019 PROVIDED CLINICAL HISTORY: Abdominal pain FINDINGS: Comparison 12-20-2018. There is geographic ground glass opacity redemonstrated in the left infrahilar region, appearing some what more conspicuous than on the prior study. Visualized lung bases appear otherwise clear. The liver, spleen, pancreas, kidneys and adrenal glands demonstrate no significant abnormality. A percutaneous gastrostomy tube is noted within the fundus of the stomach. There is no bowel dilatati on, intraperitoneal fat stranding, free fluid or free air apparent. Nonspecific stranding of the subc utaneous fat about the course of the PEG tube through the anterior abdominal wall. There is conspicuous colonic retention. Vascular calcifications are seen. Changes of prior cholecystectomy. The osseous structures demonstrate no concerning lytic or blastic lesions. IMPRESSION: 1. Geographic ground glass opacity partially visualized involving the left infrahilar region. Dedicat ed follow up chest CT is recommended on a non-emergent basis. 2. Colonic fecal retention suggest constipation. POS: [facility]
== END 2019-12-17 20:35 | disposition home or self-care (01) ==
LOC: ERS 17:17
DX: K94.23 Gastrostomy malfunction (principal); K59.00 Constipation, unspecified; I25.2 Old myocardial infarction; E11.9 Type 2 diabetes mellitus without complications; I10 Essential (primary) hypertension; E78.5 Hyperlipidemia, unspecified; E78.00 Pure hypercholesterolemia, unspecified; M19.90 Unspecified osteoarthritis, unspecified site; F32.9 Major depressive disorder, single episode, unspecified; Z79.84 Long term (current) use of oral hypoglycemic drugs; Z79.899 Other long term (current) drug therapy
CPT/HCPCS: 36415; 43762; 74177; 80053; 83690; 83735; 85025; J2270; J2405; Q9967

== ENCOUNTER 2020-01-18 17:21 | Inpatient (IN) | payer OTHER, SELFPAY ==
[~2020-01-18 17:21] MED LIST changes: +Iopamidol 370 76% 50 ML VIAL FS ONE
[2020-01-18] MEDS ORDERED: Ondansetron PF 4 MG/2 ML Vial ONE ×2 (18:06→21:32)
[2020-01-18 18:29] LABS: #Eosinphils 0.2 thou/uL (0.0-0.7); #Lymphocytes 3.2 thou/uL (1.20-3.40); #Monocytes 0.7 thou/uL (0.11-0.59); #Neutrophils 5.4 thou/uL (1.40-6.50); %Basophils 0.5 % (0.0-1.0); %Eosinophils 2.5 % (0.0-10.0); %Lymphocytes 33.6 % (21.0-51.0); %Neutrophils 56.5 % (42.0-75.0); Hemoglobin 13.3 g/dL (12.0-16.0); Mean Corpuscular HGB CONC 32.6 g/dL (32.0-36.0); Mean Corpuscular Volume 82.7 fL (78.0-98.0); Mean Platelet Volume 8.8 fL (7.4-10.4); Platelet Count 247 thou/uL (130-400); RBC Distribution Width 12.8 % (11.5-14.5); Red Blood Cell (RBC) Count 4.92 mill/uL (4.20-5.40); White Blood Cell (WBC) Count 9.5 thou/uL (4.8-10.8)
[2020-01-18 18:55] LABS: ALT (SGPT) 107 U/L (8-55); AST (SGOT) 77 U/L (5-34); Albumin 3.7 g/dL (3.5-5.0); Alkaline Phosphatase 414 U/L (40-110); Anion Gap 16 mmol/L (10-20); BUN (Urea Nitrogen) 17 mg/dL (9.8-20.1); Bilirubin, Total 0.7 mg/dL (0.2-1.2); Calc. Creatinine Clearance 0 mL/min (70-130); Calcium 9.6 mg/dL (7.8-10.44); Carbon Dioxide 26 mmol/L (22-29); Chloride 99 mmol/L (98-107); Estimated GFR-MDRD 71; Glucose 264 mg/dL (70-105); Lipase 370 U/L (8-78); Protein, Total 7.7 g/dL (6.0-8.3); Sodium 137 mmol/L (136-145)
--- NOTE | 2020-01-18 20:03 | CT ---
CT Abdomen Pelvis W Con HISTORY: Abdominal pain COMPARISON: 12/17/2019 FINDINGS: The ground glass opacity in the left infrahilar region has improved in the interim but not resolved c ompletely. The patient is post cholecystectomy. PEG tube is again seen. The bulb of the peg tube may be at the ligament of Treitz Contrast injected via the peg tube is seen in the loops of small and large bowel. The small bowel loops are not abnormally dilated. No free air, free fluid or lymphadenopathy seen. An abnormal appendix is not visualized. The liver, spleen, pancreas, adrenal glands and kidneys appear normal. There are vascular calcificati ons without evidence of aneurysmal dilatation of the abdominal aorta. Uterus is present. Vascular calcifications again seen without evidence of aneurysmal dilatation of the abdominal aorta. There are degenerative changes in the spine. IMPRESSION: 1. Interval improvement in the left infrahilar groundglass opacity since 12/17/2019. 2. No evidence of acute process in the abdomen or pelvis..
[2020-01-18] MEDS ORDERED: Morphine 4 MG/ML VIAL ONE (21:31)
--- NOTE | 2020-01-18 21:44 | PDOC.HHP ---
Hospitalist HPI - History of Present Illness Abdominal pain History of Present Illness: PCP: Dr. Pavon The H&P was taken from stock turner at bedside secondary to patient being Swazi-speaking. The patient is a 59-year-old female with a past medical history significant for diabetes type 2 (takes metformin), hypertension, hyperlipidemia, CAD and CVA (2017) with G-tube in place (takes food orally from time to time) that presents to the emergency department for the above complaint. The patient reports developing abdominal pain for the past 3 weeks, located primarily to the right upper quadrant, described as dull and aching, intermittent, exacerbated with oral food intake, relieved by nothing. Reports over the past 3 days, her symptoms have become more severe, with associated nausea and vomiting. The patient reports that she is hungry,however, she becomes nauseated and vomits after any oral intake, even water. Denies any hematemesis or hemoptysis. Denies any hematochezia or melena. Reports last bowel movement on Wednesday, she is passing flatus. Has no history of alcohol abuse. She has a history of hyperlipidemia, however, has stopped taking her pravastatin for unknown reason. She has had a cholecystectomy. Denies fever, chills. Denies dark urine or erica colored stools. She denies any chest pain or heart palpitations or swelling to lower extremities. She reports cough, however, it is chronic secondary to a recent diagnosis of pulmonary infiltrates for which she has completed oral antibiotic regimen. Denies any headaches, neck pain or stiffness, new focal motor deficits. ED Course: VITAL SIGNS May Jan 18, 2020 17:22 AMANUEL Diana Jessica BP: 148/89, MAP: 125, Pulse: 89, Resp: 25 (Non-Labored), Temp: 98.7 (Oral), Pain: 7, O2 sat: 99 on (Room Air), Time: 01/18/2020 17:22. VITAL SIGNS May Jan 18, 2020 17:33 AMANUEL [place] Rebecca BP: 164/102, MAP: 122, Pulse: 81, Resp: 20, Pain: 7, O2 sat: 99 on (Room Air), Time: 01/18/2020 17:33. VITAL SIGNS May Jan 18, 2020 18:22 AMANUEL [place] Rebecca BP: 157/91, Pulse: 77, Resp: 22, Pain: 6, O2 sat: 99, Time: 01/18/2020 18:22. Medication Administration: sodium chloride 0.9 % intravenous 1 L IV Fluid Infusion Given 21:38 01/18/2020 ondansetron HCl intravenous 4 mg IV Push Given 21:37 01/18/2020 ondansetron HCl intravenous 4 mg IV Push Given 18:24 01/18/2020 Hospitalist ROS - Review of Systems All other systems reviewed; all pertinent +/- noted in HPI/Subj - Medication Medications: pravastatin TABLET : Strength - 40 mg : ORAL Patient Dose: 1 tab(s) G-Tube once a day (at bedtime). lisinopril TABLET : Strength - 20 mg : ORAL Patient Dose: 1 tab(s) G-Tube once a day (in the morning). metFORMIN TABLET : Strength - 1,000 mg : ORAL Patient Dose: 1000 mg G-Tube 2 times a day. Miralax 17 gram/dose : Strength - powder : ORAL Patient Dose: 17 g Oral 2 times a day. Allergies: BLOOD PRESSURE MEDICATION, No Known Allergies (Unconfirmed) Hospitalist History - Past Medical History Source: patient, family, RN notes reviewed Cardiac: reports: CAD, HTN, AR, Hyperlipidemia SILVICULTURIST: reports: CVA (Right-sided deficits (2017)) Psych: reports: Depression Endocrine: reports: Diabetes (Type II) - Past Surgical History Past Surgical History: reports: Cholecystectomy, Other (G-tube (08/03) ICH with coil) - Family History Family History: denies: cerebrovascular accident - Social History Smoking Status: Former smoker (Quit greater than 10 years ago) Alcohol: reports: None Drugs: reports: none Living Situation: With Family Activity level: wheelchair bound - Exam General Appearance: awake alert. negative: ill appearing General - other findings: Appears uncomfortable, Swazi speaker Eye: PERRL, anicteric sclera ENT: normocephalic atraumatic, dry oral mucosa Neck: supple, symmetric, no JVD Heart: RRR, no murmur, no gallops, no rubs, normal peripheral pulses Respiratory: CTAB, no wheezes, no rales, no ronchi, normal chest expansion, no tachypnea Gastrointestinal: soft, non-distended, normal bowel sounds, no guarding, no rigidity, tender to palpation (Right upper quadrant) Gastrointestinal - other findings: Positive Amaya sign, negative Rovsing sign Extremities: no cyanosis, no edema Skin: no rashes Neurological: no new deficit Psychiatric: normal affect, A&O x 3 Hospitalist Results - Labs Result Diagrams: 01/18/20 18:11 01/18/20 18:11 Lab results: WBC 9.5 thou/uL (4.8-10.8) 01/18/20 18:11 Hgb 13.3 g/dL (12.0-16.0) 01/18/20 18:11 Hct 40.7 % (36.0-47.0) 01/18/20 18:11 MCV 82.7 fL (78.0-98.0) 01/18/20 18:11 Plt Count 247 thou/uL (130-400) 01/18/20 18:11 Neutrophils % 56.5 % (42.0-75.0) 01/18/20 18:11 Sodium 137 mmol/L (136-145) 01/18/20 18:11 Potassium 4.0 mmol/L (3.5-5.1) 01/18/20 18:11 Chloride 99 mmol/L (98-107) 01/18/20 18:11 Carbon Dioxide 26 mmol/L (22-29) 01/18/20 18:11 BUN 17 mg/dL (9.8-20.1) 01/18/20 18:11 Creatinine 0.83 mg/dL (0.6-1.1) 01/18/20 18:11 Glucose 264 mg/dL (70-105) H 01/18/20 18:11 Calcium 9.6 mg/dL (7.8-10.44) 01/18/20 18:11 Total Bilirubin 0.7 mg/dL (0.2-1.2) 01/18/20 18:11 AST 77 U/L (5-34) H 01/18/20 18:11 ALT 107 U/L (8-55) H 01/18/20 18:11 Alkaline Phosphatase 414 U/L (40-110) H 01/18/20 18:11 Serum Total Protein 7.7 g/dL (6.0-8.3) 01/18/20 18:11 Albumin 3.7 g/dL (3.5-5.0) 01/18/20 18:11 Lipase 370 U/L (8-78) H 01/18/20 18:11 - Radiology Interpretation CT scan - abdomen Status: report reviewed by me Additional Comment: IMPRESSION: 1. Interval improvement in the left infrahilar groundglass opacity since 12/17/2019. 2. No evidence of acute process in the abdomen or pelvis.. Hospitalist H&P A/P - Problem (1) Acute pancreatitis Code(s): K85.90 - ACUTE PANCREATITIS WITHOUT NECROSIS OR INFECTION, UNSP Status: Acute (2) Nausea and vomiting Code(s): R11.2 - NAUSEA WITH VOMITING, UNSPECIFIED Status: Acute (3) DMII (diabetes mellitus, type 2) Status: Chronic (4) HTN (hypertension) Code(s): I10 - ESSENTIAL (PRIMARY) HYPERTENSION Status: Chronic (5) HLD (hyperlipidemia) Code(s): E78.5 - HYPERLIPIDEMIA, UNSPECIFIED Status: Chronic (6) CAD (coronary artery disease) Code(s): I25.10 - ATHSCL HEART DISEASE OF [place] CORONARY ARTERY W/O ANG PCTRS Status: Chronic (7) CVA (cerebral vascular accident) Code(s): I63.9 - CEREBRAL INFARCTION, UNSPECIFIED Status: Chronic (8) Depression Code(s): F32.9 - MAJOR DEPRESSIVE DISORDER, SINGLE EPISODE, UNSPECIFIED Status: Chronic - Plan Plan: 59/F with PMH of DM 2, HTN, HLD, CAD and CVA with G-tube presents for abdominal pain, N/V. Admit to medical floor, inpatient status. Expected length of stay greater than 2 midnights. Presented mildly hypertensive, tachypneic, NL HR, SPO2, afebrile. Lipase 370, ALP 414, AST 77, ALT 107, bili 0.7, glucose [address] abdomen pelvis no acute process #Acute pancreatitis Mild, No concern for necrosis or abscess at this time. N.p.o. Continue IV fluids. Continue Zofran and Phenergan and morphine as needed Check RUQ, FLP. Hold metformin Consult GI #Nausea and vomiting Likely related to problem #1. Continue antiemetics PRN #DM2 Hold metformin Every 6 hours Accu-Cheks. Moderate ISS #Hypertension Patient presented mildly hypertensive. Add hydralazine IVP PRN. Continue to monitor BP. #Hyperlipidemia Patient stopped taking home dose statin for unknown reason. Check FLP. #CAD Patient reports previous mild AR. Denies taking aspirin or Plavix. #CVA Left with right-sided deficits (2017). G-tube in place. Takes oral intake from time to time. Wheelchair with assist to stand. Total care at home. #Depression Denies SI/HI. Takes no home medications for this. SCDs for DVT prophylaxis. Protonix for GI prophylaxis. Full code. Designated medical decision-maker is her daughter Martha Kenny at [phone]. Discussed case with Dr. Aburto.
[2020-01-18] MEDS ORDERED: Ondansetron ODT 4 MG TAB PO PRN (22:35)
[2020-01-18] MEDS ORDERED: Ondansetron PF 4 MG/2 ML Vial IVP PRN (22:35)
[2020-01-18] MEDS ORDERED: Morphine 2 MG/ML VIAL SLOW IVP PRN (22:39)
[2020-01-18] MEDS ORDERED: Dextrose 5% in Water 1,000 ML IV PRN (22:42)
[2020-01-18] MEDS ORDERED: HumaLOG 300 UNITS/3 ML VIAL SC PRN (22:42)
[2020-01-18] MEDS ORDERED: Dextrose 50% Abboject 50 ML SYRINGE SLOW IVP PRN (22:42)
[2020-01-18] MEDS ORDERED: Promethazine HCl 25 MG in Sodium Chloride 0.9% 50 ML IVPB PRN (22:43)
[2020-01-18] MEDS ORDERED: hydrALAZINE 20 MG/ML VIAL SLOW IVP PRN (22:43)
[2020-01-18] MEDS ORDERED: Acetaminophen 650 MG/20.3 ML UDCUP PER TUBE PRN (22:44)
[2020-01-18] MEDS ORDERED: Sodium Chloride 0.9% (PF) 10 ML VIAL FS PRN (23:15)
[2020-01-19] MEDS: Sodium Chloride 0.9% 1,000 ML IV SCH ×2 (01:42→10:40)
[2020-01-19 01:56] VITALS: BMI 23.2
[2020-01-19 05:42] LABS: #Basophils 0.1 thou/uL (0.0-0.2); #Eosinphils 0.3 thou/uL (0.0-0.7); #Lymphocytes 3.6 thou/uL (1.20-3.40); #Monocytes 0.6 thou/uL (0.11-0.59); #Neutrophils 4.3 thou/uL (1.40-6.50); %Basophils 0.8 % (0.0-1.0); %Eosinophils 3.8 % (0.0-10.0); %Lymphocytes 40.7 % (21.0-51.0); %Monocytes 6.9 % (0.0-10.0); %Neutrophils 47.8 % (42.0-75.0); Hemoglobin 11.5 g/dL (12.0-16.0); Mean Corpuscular HGB CONC 31.6 g/dL (32.0-36.0); Mean Corpuscular Hemoglobin 26.2 pg (27.0-31.0); Mean Corpuscular Volume 82.9 fL (78.0-98.0); Mean Platelet Volume 8.8 fL (7.4-10.4); Platelet Count 222 thou/uL (130-400); RBC Distribution Width 12.7 % (11.5-14.5); White Blood Cell (WBC) Count 8.9 thou/uL (4.8-10.8)
[2020-01-19 05:46] LABS: ALT (SGPT) 73 U/L (8-55); AST (SGOT) 43 U/L (5-34); Albumin 3.1 g/dL (3.5-5.0); Alkaline Phosphatase 313 U/L (40-110); Anion Gap 12 mmol/L (10-20); BUN (Urea Nitrogen) 12 mg/dL (9.8-20.1); Bilirubin, Total 0.6 mg/dL (0.2-1.2); Calc. Creatinine Clearance 79 mL/min (70-130); Calcium 8.4 mg/dL (7.8-10.44); Carbon Dioxide 25 mmol/L (22-29); Cardiac Risk 2.9 (Less than 4.5); Chloride 104 mmol/L (98-107); Cholesterol 118 mg/dl (< 200 Desired); Estimated GFR-MDRD Greater than 90; Globulin 3.1 g/dL (2.4-3.5); Glucose 134 mg/dL (70-105); HDL Cholesterol 41 mg/dL (>60 Neg Risk); LDL Cholesterol, Calculated 61 mg/dL; Potassium 3.6 mmol/L (3.5-5.1); Protein, Total 6.2 g/dL (6.0-8.3); Sodium 137 mmol/L (136-145); Triglycerides 82 mg/dL (Less than 150)
--- NOTE | 2020-01-19 07:45 | ULT ---
RIGHT UPPER QUADRANT ULTRASOUND: COMPARISON: CT of the abdomen/pelvis 01/18/2020. HISTORY: Epigastric pain with nausea and vomiting. Acute pancreatitis. TECHNIQUE: Multiplanar, peter scale, and color Doppler images were obtained in a right upper quadrant abdominal u ltrasound. FINDINGS: The liver is normal in echogenicity without focal lesions or intrahepatic ductal dilatation. The gal lbladder has been removed. The common bile duct is normal measuring 4 mm. The visualized portions of the pancreas are unremarkable. The right kidney is normal in echogenicity without hydronephrosis or calculus and measures 9.2 cm in length. IMPRESSION: No significant abnormality. POS: EAA
[2020-01-19] MEDS ORDERED: Enoxaparin Sodium 30 MG/0.3 ML SYRINGE SC SCH (09:00)
[2020-01-19 09:04] LABS: Magnesium 1.5 mg/dL (1.6-2.6)
[2020-01-19] MEDS ORDERED: Electrolyte Replacement Protoc 1 EACH EACH IVPB PRN (09:32)
[2020-01-19] MEDS ORDERED: Potassium Phosphate 15 MMOL in Sodium Chloride 0.9% 250 ML 250 ML IVPB SCH (10:00)
[2020-01-19] MEDS ORDERED: Electrolyte Replacement Protocol FS PRN (10:00)
[2020-01-19] MEDS ORDERED: Magnesium 2 GM/50 ML 2 GM in Premix Bag 1 BAG IVPB SCH (10:00)
[2020-01-19 11:32] LABS: SARS-CoV-2 MS2 Positive; SARS-CoV-2 N Gene Negative; SARS-CoV-2 S Gene Negative; SARS-CoV-2 by NAA Not Detected (NotDetected); SARS-CoV-2 orf1ab Negative
[2020-01-19] MEDS: Pantoprazole 40 MG VIAL IVP SCH (12:27)
[2020-01-19 14:41] LABS: Bilirubin Negative (Negative); Clarity Clear (Clear); Glucose, Urine (Dipstick) Greater than 1000 mg/dL (Negative); Ketone, Urine 80 mg/dL (Negative); Leukocyte 250 Leu/uL (Negative); Mucous/LPF Rare LPF (<2+); Nitrite Negative (Negative); Protein, Urine (Dipstick) 30 mg/dL (Neg-Trace); Specific Gravity, Urine 1.046 (1.002-1.036); Squamous Epithelial 0-3 HPF (0-3); Urobilinogen Normal mg/dL (Less than 2)
[2020-01-19 14:50] LABS: Bacteria/HPF 1+ HPF (None Seen); Blood, Urine Negative (Negative); RBC/HPF 0-3 HPF (0-3)
--- NOTE | 2020-01-19 15:05 | PDOC.HOSPP ---
- Subjective Encounter Date: 01/19/20 Encounter Time: 10:00 Subjective: Patient seen and examined for acute pancreatitis. Abdominal plain slightly better. No nausea, vomiting or fever reported. Last bowel movement was 4 days ago - Objective Vital Signs & Weight: Vital Signs (12 hours) Temp Pulse Resp BP BP Pulse Ox 01/19/20 08:00 97 01/19/20 07:41 98.2 F 74 20 153/76 H 97 01/19/20 04:00 98.3 F 66 20 158/82 H 97 Weight Admit Weight 119 lb Weight 119 lb 0.794 oz Result Diagrams: 01/19/20 05:11 01/19/20 05:11 Additional Labs: Accuchecks 01/19/20 01/19/20 01/18/20 11:15 04:55 23:54 POC Glucose 100 144 H 156 H Laboratory Tests 01/18/20 01/19/20 01/19/20 18:11 05:11 05:11 Phosphorus Magnesium 1.5 L AST 77 H 43 H ALT 107 H 73 H Alkaline Phosphatase 414 H 313 H Lipase 370 H 160 H 01/19/20 05:11 Phosphorus 2.0 L Magnesium AST ALT Alkaline Phosphatase Lipase Radiology Reviewed by me: Yes (CT abdomenno acute process) Hospitalist ROS - Review of Systems Respiratory: denies: cough, dry, shortness of breath, hemoptysis, SOB with excertion, pleuritic pain, sputum, wheezing, other Cardiovascular: denies: chest pain, palpitations, orthopnea, paroxysmal noc. dyspnea, edema, light headedness, other - Medication Medications: Active Medications Generic Name Dose Route Start Last Admin Trade Name Freq PRN Reason Stop Dose Admin Pantoprazole Sodium 40 mg 01/19/20 09:00 01/19/20 12:27 Pantoprazole 40 Mg Vial IVP Not Given DAILY JOHN - Exam General Appearance: NAD Neck: supple, symmetric, no JVD, no thyromegaly Heart: RRR, no gallops, no rubs, normal peripheral pulses Respiratory: no wheezes, no rales, no ronchi, normal chest expansion Gastrointestinal: non-distended, normal bowel sounds, no guarding, no rigidity Gastrointestinal - other findings: Right-sided periumbilical tenderness, PEG tube present Extremities: no cyanosis, no clubbing Skin: normal turgor Neurological: no new deficit Psychiatric: normal affect, A&O x 3 Hosp A/P (1) Acute pancreatitis Code(s): K85.90 - ACUTE PANCREATITIS WITHOUT NECROSIS OR INFECTION, UNSP Status: Acute (2) Electrolyte abnormality Code(s): E87.8 - OTH DISORDERS OF ELECTROLYTE AND FLUID BALANCE, NEC Status: Acute (3) CAD (coronary artery disease) Code(s): I25.10 - ATHSCL HEART DISEASE OF [place] CORONARY ARTERY W/O ANG PCTRS Status: Chronic (4) DMII (diabetes mellitus, type 2) Status: Chronic (5) HLD (hyperlipidemia) Code(s): E78.5 - HYPERLIPIDEMIA, UNSPECIFIED Status: Chronic (6) HTN (hypertension) Code(s): I10 - ESSENTIAL (PRIMARY) HYPERTENSION Status: Chronic (7) Swallowing dysfunction Code(s): R13.10 - DYSPHAGIA, UNSPECIFIED Status: Chronic (8) S/P percutaneous endoscopic gastrostomy (PEG) tube placement Code(s): Z93.1 - GASTROSTOMY STATUS (9) Other issues per H&P - Plan DVT proph w/SCDs LFTs improving. Abdominal pain slightly better. Will change IV fluid to D5 half NS with 20 of potassium. Continue sliding scale. Continue IV PPIs. Replace electrolytes. Await GI input. Recheck lipase and electrolytes in a.m. Urinalysis showed suspected UTI. We will start her on IV ceftriaxone and urine cultures will be sent. Despite the history of CVA patient is not taking aspirin. She will be started on 81 mg aspirin.
[2020-01-19] MEDS ORDERED: Aspirin 81 mg Enteric Coated Tablet PO SCH (15:30)
[2020-01-19] MEDS ORDERED: cefTRIAXone\\ROCEPHIN 1 GM in Sodium Chloride 0.9% 100 ML IVPB SCH (16:00)
[2020-01-19] MEDS: D5 1/2 NS w/20 mEq KCL 1,000 ML IV SCH ×2 (17:50→21:04)
--- NOTE | 2020-01-19 19:03 | CON ---
DATE OF CONSULTATION: 01/19/2020 HISTORY OF PRESENT ILLNESS: Ms. Rosenberg has been admitted for nausea, vomiting, abdominal pain, and possible pancreatitis. I have been asked to see her. She has seen in our office a few weeks ago with complaints of constipation, obstipation, a feeling that her PEG tube was not functioning correctly. She was treated with laxatives and her constipation improved. She had a CT scan of her abdomen on 12/19/2019 at this hospital. She admitted again yesterday on admission. On the CT scan on admission, the radiologist concerned that the PEG tube was in the bulb or further down in the duodenum. The patient's lipase was also elevated in the 200 to 300 range. She was admitted for further evaluation. The patient has had the PEG tube placed in 2016 after multiple strokes. Talking with the family, she takes most of her feeds with soft foods in use of the PEG tube mainly for hydration. She does not use any feeding through the PEG that gets her diarrhea and managed to keep her nutrition in a good status with that. In December, her CT scan showed the inflated tube not to be in the stomach. Apparently, this had to be adjusted by the ER. Followup imaging showed it to be in the stomach. A CT scan on 12/16 showed the tube to be in the proper area in the fundus of the stomach; however, the scan again yesterday evening on admission showed it in the proximal jejunum. Again, the history is very consistent with what she told the PA in my office that for the past year she has had worsening abdominal pain more in the right upper quadrant, worse with oral foods. She feels like when she takes anything oral, it will not go down. She does not do a lot of feeding through her PEG. She becomes nauseated and vomits with intake. She had no hematochezia, melena, or hematemesis. She had a bowel movement a few days prior to admission. She does not drink smoke or use drugs. She does have history of hyperlipidemia, but is off her pravastatin presently. She has had a previous cholecystectomy. PAST MEDICAL HISTORY: Hyperlipidemia, myocardial infarction, prior strokes, right-sided paralysis and oropharyngeal dysphagia, diabetes type 2, and hypertension. PAST SURGICAL HISTORY: She had a coil in her brain for intracranial bleeding. She has had feeding tube placed in 2017, heart catheterization. SOCIAL HISTORY: She does not smoke, drink, or use drugs. Her daughter is at bedside. ALLERGIES: NONE KNOWN. MEDICATIONS: At home, pravastatin. It is questionable she is taking lisinopril or metformin. Medications here; Tylenol p.r.n., IV fluid, Apresoline, insulin sliding scale, electrolyte replacement protocol, morphine p.r.n., Zofran p.r.n., Protonix 40 mg IV daily, normal saline at 110 an hour. PHYSICAL EXAMINATION: GENERAL: She is resting in bed. She has no distress. HEENT: Oropharynx, no lesions. NECK: Supple without adenopathy. LUNGS: Clear. HEART: Regular rate and rhythm without clicks or murmurs. ABDOMEN: Notable for the PEG tube being completely inside of her stomach with very little of the tube itself actually outside the stomach, in fact it is really just the apparatus that has the Y-connector that keeping it from sliding all the way into the stomach. There was no evidence of pus in the PEG tube. The balloon was deflated and the PEG tube was brought out and inserted back in the stomach and reinflated. The bumper was re-affixed with a length of about 3 cm into the stomach. EXTREMITIES: Reveal no clubbing, cyanosis, or edema. LABORATORY STUDIES: White count 8.9 and 9.5 yesterday, hemoglobin 11.5, platelet count 222. Sodium 137, potassium 3.6, BUN and creatinine 12 and 0.6. AST and ALT are 43 and 76 with alkaline phosphatase of 313 and it was 411 yesterday, 108 on 12/17/2019. AST and ALT are usually normal and were normal on 12/17/2019. Lipase is 160 today, it was 370 yesterday, 25 on 12/16, magnesium 1.5, phosphorus 2.0. Urinalysis; 150 glucose, no ketones, no blood. IMAGING: CT scan shows the PEG tube was migrated out of the stomach and into the jejunum causing a functional obstruction. Ultrasound shows no evidence of gallstones. In fact, she has had previous cholecystectomy and there is no ductal dilatation. CT scan yesterday showed the obstruction of the jejunum secondary to the feeding tube. ASSESSMENT: I do not think she had pancreatitis. I think this is PEG tube dysfunction and partial obstruction. She takes most of her feeding by mouth and that is why she was vomiting as the PEG tube is obstructing her jejunum, it has been replaced in the proper position and the tape was then placed in the PEG tube, so it cannot migrate distally again. RECOMMENDATIONS: 1. Recheck labs tomorrow. 2. Start feeding as tolerated. If the patient has recurrent pain, we can re-scan and make sure the PEG is in the right place. Job ID: [id number]
[2020-01-19] MEDS ORDERED: FLU VACC QS2020-21(6MOS UP)/PF 60 MCG/0.5 ML SYRINGE IM ONE (21:00)
[2020-01-20] MEDS: HumaLOG 300 UNITS/3 ML VIAL SC PRN ×2 (05:06→11:48)
[2020-01-20] MEDS: D5 1/2 NS w/20 mEq KCL 1,000 ML IV SCH (05:08)
[2020-01-20 06:23] LABS: #Eosinphils 0.3 thou/uL (0.0-0.7); #Lymphocytes 2.7 thou/uL (1.20-3.40); #Monocytes 0.5 thou/uL (0.11-0.59); #Neutrophils 3.6 thou/uL (1.40-6.50); %Basophils 0.7 % (0.0-1.0); %Eosinophils 4.4 % (0.0-10.0); %Lymphocytes 38.3 % (21.0-51.0); %Monocytes 6.5 % (0.0-10.0); %Neutrophils 50.1 % (42.0-75.0); Hemoglobin 11.6 g/dL (12.0-16.0); Mean Corpuscular HGB CONC 33.4 g/dL (32.0-36.0); Mean Corpuscular Hemoglobin 27.5 pg (27.0-31.0); Mean Corpuscular Volume 82.3 fL (78.0-98.0); Mean Platelet Volume 8.8 fL (7.4-10.4); Platelet Count 225 thou/uL (130-400); RBC Distribution Width 12.7 % (11.5-14.5); Red Blood Cell (RBC) Count 4.23 mill/uL (4.20-5.40); White Blood Cell (WBC) Count 7.1 thou/uL (4.8-10.8)
[2020-01-20 06:42] LABS: Phosphorus 2.2 mg/dL (2.3-4.7)
[2020-01-20 06:48] LABS: ALT (SGPT) 46 U/L (8-55); AST (SGOT) 22 U/L (5-34); Albumin 2.9 g/dL (3.5-5.0); Alkaline Phosphatase 258 U/L (40-110); Anion Gap 9 mmol/L (10-20); BUN (Urea Nitrogen) 7 mg/dL (9.8-20.1); Bilirubin, Total 0.3 mg/dL (0.2-1.2); Calc. Creatinine Clearance 76 mL/min (70-130); Calcium 8.3 mg/dL (7.8-10.44); Carbon Dioxide 26 mmol/L (22-29); Chloride 103 mmol/L (98-107); Estimated GFR-MDRD 87; Globulin 3.2 g/dL (2.4-3.5); Glucose 294 mg/dL (70-105); Lipase 38 U/L (8-78); Magnesium 1.7 mg/dL (1.6-2.6); Potassium 3.8 mmol/L (3.5-5.1); Protein, Total 6.1 g/dL (6.0-8.3); Sodium 134 mmol/L (136-145)
[2020-01-20] MEDS ORDERED: Magnesium 2 GM/50 ML 2 GM in Premix Bag 1 BAG IVPB SCH (07:45)
[2020-01-20] MEDS: Pantoprazole 40 MG VIAL IVP SCH (08:22)
[2020-01-20] MEDS ORDERED: Saccharomyces boulardii 250 MG CAP PO SCH (09:00)
[2020-01-20] MEDS ORDERED: Aspirin 81 mg Enteric Coated Tablet PO SCH (09:00)
--- NOTE | 2020-01-20 13:34 | PDOC.HOSPP ---
- Subjective Encounter Date: 01/20/20 Encounter Time: 13:31 Subjective: Ms. Rosenberg was seen for follow-up of dysphagia and abdominal pain. She is doing better today. She has been able to tolerate oral after the PEG tube was re- positioned. - Objective Vital Signs & Weight: Vital Signs (12 hours) Temp Pulse Resp BP BP Pulse Ox 01/20/20 11:43 98.0 F 74 16 122/69 96 01/20/20 08:43 96 01/20/20 08:12 98.0 F 70 16 125/72 96 01/20/20 04:00 98.1 F 61 18 147/82 H 95 Weight Admit Weight 119 lb Weight 119 lb 0.794 oz I&O: 01/19/20 01/20/20 01/21/20 06:59 06:59 06:59 Intake Total 3205 Output Total 250 Balance 2955 Result Diagrams: 01/20/20 05:58 01/20/20 05:58 Additional Labs: Accuchecks 01/20/20 01/20/20 01/19/20 11:51 05:11 20:07 POC Glucose 275 H 302 H 249 H 01/19/20 16:09 POC Glucose 90 Hospitalist ROS - Medication Medications: Active Medications Generic Name Dose Route Start Last Admin Trade Name Freq PRN Reason Stop Dose Admin Aspirin 81 mg 01/20/20 09:00 01/20/20 08:22 Aspirin 81 Mg Enteric Coated Tablet PO 81 mg DAILY JOHN Administration Potassium Chloride/Dextrose/Sod Cl 1,000 mls @ 125 mls/hr 01/19/20 15:15 01/20/20 05:08 D5 1/2 Ns W/20 Meq Kcl IV 1,000 mls .Q8H JOHN Administration Ceftriaxone Sodium 1 gm/ 100 mls @ 200 mls/hr 01/19/20 16:00 01/19/20 17:50 Sodium Chloride IVPB 100 mls Q24HR JOHN Administration Insulin Human Lispro 0 units 01/18/20 22:42 01/20/20 11:48 Humalog 300 Units/3 Ml Vial SC 6 unit .MODERATE SLIDING SC PRN Administration Moderate Correctional Scale Pantoprazole Sodium 40 mg 01/19/20 09:00 01/20/20 08:22 Pantoprazole 40 Mg Vial IVP 40 mg DAILY JOHN Administration Saccharomyces Boulardii 250 mg 01/20/20 09:00 01/20/20 08:21 Saccharomyces Boulardii 250 Mg Cap PO 250 mg DAILY JOHN Administration - Exam Eye: PERRL, anicteric sclera Heart: RRR, no murmur, no gallops, no rubs, normal peripheral pulses Respiratory: CTAB, no wheezes, no rales, no ronchi, normal chest expansion, no tachypnea, normal percussion Gastrointestinal: soft, non-distended, normal bowel sounds Extremities: no cyanosis, no edema Hosp A/P (1) S/P percutaneous endoscopic gastrostomy (PEG) tube placement Code(s): Z93.1 - GASTROSTOMY STATUS Status: Acute (2) CAD (coronary artery disease) Code(s): I25.10 - ATHSCL HEART DISEASE OF [place] CORONARY ARTERY W/O ANG PCTRS Status: Chronic (3) CVA (cerebral vascular accident) Code(s): I63.9 - CEREBRAL INFARCTION, UNSPECIFIED Status: Chronic (4) DMII (diabetes mellitus, type 2) Status: Chronic (5) HTN (hypertension) Code(s): I10 - ESSENTIAL (PRIMARY) HYPERTENSION Status: Chronic - Plan * Bowel Obstruction due to PEG tube mal-position- improved * HTN - blood pressure is stable * DM- a bit elevated- but will not preclude discharge
[2020-01-20 15:50] VITALS: BP 139/82; TEMP 98.3
--- NOTE | 2020-01-20 19:08 | DIS ---
DATE OF ADMISSION: 01/18/2020 DATE OF DISCHARGE: 01/20/2020 PRIMARY CARE PHYSICIAN: Dr. Jackson. DISCHARGE DIAGNOSES: 1. Partial bowel obstruction. 2. PEG tube . 3. Diabetes mellitus type 2. 4. Coronary artery disease. 5. Hypertension. 6. Previous cerebrovascular accident with dysphagia. DISCHARGE MEDICATIONS: Include; 1. Reglan 10 mg q.6 hours as needed. 2. Prednisone 20 mg p.o. daily. 3. Pravachol 40 mg per tube daily. 4. Plavix 75 mg p.o. daily. 5. Metformin 1000 mg p.o. b.i.d. 6. Zestril 10 mg daily. 7. Atenolol 50 mg daily. 8. Aspirin 81 mg daily. 9. Augmentin suspension 600 mg p.o. b.i.d. IMAGING DONE DURING ADMISSION: The patient had a CT scan of the abdomen and pelvis, which showed improvement in the left ground-glass opacity. There was no other acute process. Abdominal ultrasound was also negative for any acute intra-abdominal process. CODE STATUS: Full code. ALLERGIES: NO KNOWN DRUG ALLERGIES. HOSPITAL COURSE: Ms. Shakira Wallace is a pleasant 59-year-old female, who presented to the emergency room with abdominal pain as well as nausea and vomiting. The full details of which are outlined in the history and physical by Kyle Cox, family nurse practitioner. It was initially thought that she could potentially have pancreatitis. She was left n.p.o., placed on IV fluids, analgesics, and antiemetics. Her medical education specialist was consulted. It was felt that pancreatitis was not likely by GI. It was felt that she was getting an intermittent obstruction due to a malpositioned feeding tube. The feeding tube was repositioned and anchored. She was monitored overnight with a trial of feeding. After repositioning the PEG tube, her pain had substantially improved and she was able to keep food down. It is of mention that the patient's dysphagia had improved to the point where she was taking food by mouth and the PEG tube is left in place as a backup for primarily fluid administration and medications. After the positioning of the PEG tube and monitoring overnight, she was able to be discharged home and have close outpatient followup. Job ID: [id number]
--- NOTE | 2020-01-21 06:45 | PRG ---
DATE OF SERVICE: 01/20/2020 SUBJECTIVE: Ms. Rosenberg is eating. She has had no difficulty with swallowing. She has no abdominal pain. OBJECTIVE: VITAL SIGNS: Temperature is 98, pulse 94, blood pressure 132/69. ABDOMEN: Soft, nontender. LABORATORY DATA: CBC is normal with white count of 7.1, hemoglobin 11.6, sodium 134, BUN and creatinine are normal. Alkaline phosphatase 258, coming down. AST and ALT are normal now. Bilirubin is normal. Lipase is 38. ASSESSMENT: Admitted with a diagnosis of "pancreatitis." This seems to have probably really been a mild elevation in lipase related to either mild bowel ischemia or bowel obstruction from the distally migrated PEG tube which has been replaced in the stomach and affixed to the abdominal wall with tape so it cannot migrate distally again. It was causing a functional bowel obstruction in the jejunum, the balloon was. No signs of pancreatitis. No signs of biliary obstruction. RECOMMENDATIONS: She can go home. It seems like she is taking most of her feeding by mouth. If it is determined that she can tolerate all of her liquids by mouth, she can have the PEG tube removed, but it seems that presently the family is using the PEG tube for liquids. If she can get speech therapy to see if she can safely swallow in the outpatient setting that would be helpful. We will follow up in the office as needed. Job ID: [id number]
== END 2020-01-20 15:51 | disposition home or self-care (01) | DRG 394 ==
LOC: ERS 17:21 → T4-A 22:21
PROVIDERS: ADMIT Internal Medicine; ATTEND Internal Medicine
DX: K94.23 Gastrostomy malfunction (principal); K56.600 Partial intestinal obstruction, unspecified as to cause; I69.351 Hemiplegia and hemiparesis following cerebral infarction affecting right dominant side; N39.0 Urinary tract infection, site not specified; F41.9 Anxiety disorder, unspecified; E11.9 Type 2 diabetes mellitus without complications; I10 Essential (primary) hypertension; Y84.9 Medical procedure, unspecified as the cause of abnormal reaction of the patient, or of later complication, without mention of misadventure at the time of the procedure; E78.5 Hyperlipidemia, unspecified; I25.10 Atherosclerotic heart disease of native coronary artery without angina pectoris; E87.8 Other disorders of electrolyte and fluid balance, not elsewhere classified; F32.9 Major depressive disorder, single episode, unspecified; Z90.49 Acquired absence of other specified parts of digestive tract; Z98.890 Other specified postprocedural states; Z79.899 Other long term (current) drug therapy; Z79.84 Long term (current) use of oral hypoglycemic drugs; I25.2 Old myocardial infarction; Z87.891 Personal history of nicotine dependence; I69.391 Dysphagia following cerebral infarction
CPT/HCPCS: 36415; 36416; 74177; 76705; 80053; 80061; 81001; 83690; 83735; 84100; 85025; 87086; 87635; 90471; 90662; 90732; 96361; 96374; 96376; C9113; G0008; G0009; J0696; J2270; J2405; J3475; J3480; J3490; J7050; Q9967; U0003

== ENCOUNTER 2022-01-09 08:46 | Outpatient (CLI) | payer OTHER | END 2022-01-09 08:47 | disposition home or self-care (01) | LOC: BICRAD 08:46 | PROVIDERS: ATTEND Physician Assistant Medical | DX: K21.9 Gastro-esophageal reflux disease without esophagitis (principal); R10.9 Unspecified abdominal pain; D72.829 Elevated white blood cell count, unspecified; R05.9 Cough, unspecified | CPT/HCPCS: 71046 ==

== ENCOUNTER 2023-03-12 23:36 | Inpatient (IN) | payer MEDICAID, SELFPAY ==
[~2023-03-12 23:36] MED LIST changes: -Iopamidol 370 76% 50 ML VIAL FS ONE; -Iopamidol-370 76% 500 ML 1 ML ONE; +Iopamidol-370 76% 500 ML MDV (1 ML CHARGE) ONE
[2023-03-13 00:13] LABS: #Monocytes 0.7 thou/uL (0.11-0.59); %Basophils 0.3 % (0.0-1.0); %Eosinophils 0.1 % (0.0-10.0); %Monocytes 5.7 % (0.0-10.0); %Neutrophils 73.6 % (42.0-75.0); Hematocrit 30.3 % (36.0-47.0); Hemoglobin 9.7 g/dL (12.0-16.0); Mean Corpuscular Hemoglobin 24.7 pg (27.0-31.0); Mean Corpuscular Volume 77.3 fl (78.0-98.0); Mean Platelet Volume 10.7 fL (7.4-10.4); Platelet Count 243 10x3/uL (130-400); RBC Distribution Width 15.8 % (11.5-14.5); Red Blood Cell (RBC) Count 3.92 mill/uL (4.20-5.40); White Blood Cell (WBC) Count 12.2 10x3/uL (4.8-10.8)
[2023-03-13] MEDS ORDERED: Labetalol HCl 100 MG/20 ML VIAL ONE (00:15)
[2023-03-13 00:26] LABS: INR-International Normal Ratio 1.1; PTT 29.8 sec (22.9-36.1); Prothrombin Time 14.5 sec (12.0-14.7)
[2023-03-13 00:42] LABS: Troponin I 0.074 ng/mL (< 0.028)
[2023-03-13 00:46] LABS: ALT (SGPT) 9 U/L (8-55); AST (SGOT) 14 U/L (5-34); Albumin 2.8 g/dL (3.4-4.8); Alkaline Phosphatase 78 U/L (40-110); Anion Gap 14 mmol/L (10-20); BUN (Urea Nitrogen) 27 mg/dL (9.8-20.1); Bilirubin, Total 0.3 mg/dL (0.2-1.2); Calc. Creatinine Clearance 0 mL/min (70-130); Calcium 8.2 mg/dL (7.8-10.44); Carbon Dioxide 24 mmol/L (23-31); Chloride 92 mmol/L (98-107); Estimated GFR 57; Globulin 4.3 g/dL (2.4-3.5); Glucose 385 mg/dL (80-115); Potassium 4.1 mmol/L (3.5-5.1); Protein, Total 7.1 g/dL (5.8-8.1); Sodium 126 mmol/L (136-145)
[2023-03-13 01:53] LABS: Bacteria/HPF None Seen HPF (None Seen); Bilirubin Negative (Negative); Blood, Urine 1+ (Negative); CAUTI Indications for Culture Alt mental st,lethar; Clarity Clear (Clear); Glucose, Urine (Dipstick) Greater than 1000 mg/dL (Negative); Ketone, Urine Negative (Negative); Leukocyte Negative Leu/uL (Negative); Nitrite Negative (Negative); Protein, Urine (Dipstick) 100 mg/dL (Neg-Trace); Squamous Epithelial None Seen HPF (0-3); Urobilinogen Normal mg/dL (Less than 2); WBC/HPF 0-3 HPF (0-3)
[2023-03-13 01:55] LABS: Specific Gravity, Urine 1.055 (1.002-1.036)
[2023-03-13 01:56] LABS: Urine Culture Reflex No No
[2023-03-13] MEDS ORDERED: Acetaminophen 325 MG TAB PO PRN (02:09)
[2023-03-13] MEDS ORDERED: Ondansetron PF 4 MG/2 ML Vial IVP PRN (02:09)
[2023-03-13] MEDS ORDERED: Ondansetron ODT 4 MG TAB PO PRN (02:09)
[2023-03-13] MEDS ORDERED: Acetaminophen 650 MG Suppository PR PRN (02:09)
[2023-03-13] MEDS ORDERED: hydrALAZINE 20 MG/ML VIAL SLOW IVP PRN (02:15)
[2023-03-13 04:30] LABS: #Basophils 0.1 thou/uL (0.0-0.2); #Neutrophils 11.7 thou/uL (1.40-6.50); %Basophils 0.5 % (0.0-1.0); %Lymphocytes 15.9 % (21.0-51.0); %Monocytes 6.7 % (0.0-10.0); %Neutrophils 76.4 % (42.0-75.0); Hemoglobin 11.2 g/dL (12.0-16.0); Mean Corpuscular Hemoglobin 24.2 pg (27.0-31.0); Mean Corpuscular Volume 75.8 fl (78.0-98.0); Mean Platelet Volume 11.5 fL (7.4-10.4); Platelet Count 261 10x3/uL (130-400); RBC Distribution Width 15.9 % (11.5-14.5); Red Blood Cell (RBC) Count 4.62 mill/uL (4.20-5.40); White Blood Cell (WBC) Count 15.4 10x3/uL (4.8-10.8)
[2023-03-13] MEDS ORDERED: Lorazepam 0.5 MG TAB PO PRN (04:57)
[2023-03-13 04:58] LABS: Anion Gap 15 mmol/L (10-20); BUN (Urea Nitrogen) 25 mg/dL (9.8-20.1); Calc. Creatinine Clearance 0 mL/min (70-130); Carbon Dioxide 25 mmol/L (23-31); Cardiac Risk 3.8 (Less than 4.5); Chloride 93 mmol/L (98-107); Cholesterol 169 mg/dl (< 200 Desired); Estimated GFR 52; HDL Cholesterol 45 mg/dL (>60 Neg Risk); LDL Cholesterol, Calculated 107 mg/dL; Potassium 4.1 mmol/L (3.5-5.1); Sodium 129 mmol/L (136-145); Triglycerides 87 mg/dL (Less than 150)
[2023-03-13 05:01] LABS: Glucose 403 mg/dL (80-115)
[2023-03-13] MEDS ORDERED: Dextrose 5% in Water 1,000 ML IV PRN (05:01)
[2023-03-13] MEDS ORDERED: Glucagon 1 MG/ML KIT IM PRN (05:01)
[2023-03-13] MEDS ORDERED: Dextrose 50% Abboject 50 ML SYRINGE SLOW IVP PRN (05:01)
[2023-03-13] MEDS ORDERED: HumaLOG 300 UNITS/3 ML VIAL SC PRN (05:01)
[2023-03-13 05:59] LABS: Lactic Acid 1.4 mmol/L (0.5-2.2)
[2023-03-13 06:07] LABS: Troponin I 0.106 ng/mL (< 0.028)
[2023-03-13] MEDS ORDERED: cefTRIAXone (ROCEPHIN) 1 GM VIAL ONE (07:52)
[2023-03-13] MEDS ORDERED: Sodium Chloride 0.9% 100 ML ONE (07:52)
[2023-03-13] MEDS: Doxycycline 100 MG in Sodium Chloride 0.9% 100 ML IVPB SCH ×2 (08:07→19:00)
[2023-03-13] MEDS: cefTRIAXone\\ROCEPHIN 1 GM in Sodium Chloride 0.9% 100 ML IVPB SCH (08:09)
[2023-03-13 08:15] VITALS: BMI 20.1
[2023-03-13] MEDS ORDERED: Aspirin 81 mg Enteric Coated Tablet PO SCH (09:00)
[2023-03-13] MEDS ORDERED: Acetaminophen 650 MG Suppository ONE (09:48)
[2023-03-13] MEDS ORDERED: HumaLOG 300 UNITS/3 ML VIAL ONE (09:49)
[2023-03-13] MEDS: HumaLOG 300 UNITS/3 ML VIAL SC PRN (10:04)
[2023-03-13 15:10] LABS: Hemoglobin A1c 13.4 % (4.0-6.0)
[2023-03-13 15:23] LABS: Anion Gap 15 mmol/L (10-20); BUN (Urea Nitrogen) 32 mg/dL (9.8-20.1); Calc. Creatinine Clearance 30 mL/min (70-130); Calcium 9.1 mg/dL (7.8-10.44); Carbon Dioxide 25 mmol/L (23-31); Chloride 98 mmol/L (98-107); Estimated GFR 34; Glucose 254 mg/dL (80-115); Sodium 134 mmol/L (136-145)
[2023-03-13 15:30] LABS: Troponin I 0.107 ng/mL (< 0.028)
[2023-03-14] MEDS ORDERED: Acetaminophen 325 MG TAB PER TUBE PRN (02:18)
[2023-03-14] MEDS ORDERED: Ondansetron ODT 4 MG TAB PER TUBE PRN (02:20)
[2023-03-14] MEDS: cefTRIAXone\\ROCEPHIN 1 GM in Sodium Chloride 0.9% 100 ML IVPB SCH (05:06)
[2023-03-14] MEDS: Doxycycline 100 MG in Sodium Chloride 0.9% 100 ML IVPB SCH ×2 (05:06→17:15)
[2023-03-14] MEDS ORDERED: Ipratropium/Albuterol 3 ML NEB EZPAP PRN (05:27)
[2023-03-14] MEDS ORDERED: Scopolamine 1 mg/72 hour Patch TD SCH (06:00)
[2023-03-14] MEDS: HumaLOG 300 UNITS/3 ML VIAL SC PRN ×3 (06:09→18:21)
[2023-03-14] MEDS ORDERED: Sodium Chloride 0.9% 1,000 ML IV SCH (08:00)
[2023-03-14] MEDS: Sodium Chloride 0.9% 1,000 ML IV SCH ×2 (08:22→17:15)
[2023-03-14] MEDS: Aspirin 81 mg Enteric Coated Tablet PER TUBE SCH (08:22)
[2023-03-14] MEDS ORDERED: Melatonin 3 MG TAB PO PRN (14:42)
[2023-03-15] MEDS: Sodium Chloride 0.9% 1,000 ML IV SCH (02:21)
[2023-03-15] MEDS: cefTRIAXone\\ROCEPHIN 1 GM in Sodium Chloride 0.9% 100 ML IVPB SCH (05:11)
[2023-03-15] MEDS: Doxycycline 100 MG in Sodium Chloride 0.9% 100 ML IVPB SCH (05:47)
[2023-03-15] MEDS ORDERED: Clopidogrel Bisulfate 75 MG TAB PER TUBE SCH (09:00)
[2023-03-15] MEDS: Aspirin 81 mg Enteric Coated Tablet PER TUBE SCH (13:34)
[2023-03-15] MEDS ORDERED: Atropine Sulfate 1% Ophth Soln 5 ml Bottle FS PRN (14:46)
[2023-03-15 17:01] VITALS: BP 142/88; TEMP 98.1
[2023-03-15] MEDS ORDERED: Atorvastatin Calcium 40 MG TAB PO SCH (21:00)
== END 2023-03-15 19:30 | disposition home or self-care (01) | DRG 871 ==
LOC: ERS 23:36 → ERHOLD 03-13 01:22 → 2SE 03-13 17:10 → OBSVTOIN 03-15 08:55
PROVIDERS: ADMIT Student in an Organized Health Care Education/Training Program; ATTEND Internal Medicine
DX: A41.9 Sepsis, unspecified organism (principal); J18.9 Pneumonia, unspecified organism; G45.9 Transient cerebral ischemic attack, unspecified; I69.351 Hemiplegia and hemiparesis following cerebral infarction affecting right dominant side; I16.1 Hypertensive emergency; E44.0 Moderate protein-calorie malnutrition; I25.2 Old myocardial infarction; E11.9 Type 2 diabetes mellitus without complications; I10 Essential (primary) hypertension; E78.5 Hyperlipidemia, unspecified; F41.9 Anxiety disorder, unspecified; F32.A Depression, unspecified; K21.9 Gastro-esophageal reflux disease without esophagitis; I25.10 Atherosclerotic heart disease of native coronary artery without angina pectoris; Z79.84 Long term (current) use of oral hypoglycemic drugs; Z79.82 Long term (current) use of aspirin; Z98.890 Other specified postprocedural states; Z93.1 Gastrostomy status; I69.391 Dysphagia following cerebral infarction; Z79.899 Other long term (current) drug therapy; Z90.49 Acquired absence of other specified parts of digestive tract; Z68.20 Body mass index [BMI] 20.0-20.9, adult
CPT/HCPCS: 36415; 36416; 70450; 70496; 70498; 70551; 71045; 80048; 80053; 80061; 81001; 83036; 83605; 84443; 84484; 85025; 85610; 85730; 87040; 93005; 93306; 94640; 96374; 96375; 96376; G0378; J0696; J1815; J3490; J7050; J7620; Q9967

== ENCOUNTER 2024-04-09 01:27 | Emergency (ER) | payer MEDICAID, SELFPAY | END 2024-04-09 02:42 | disposition home or self-care (01) | LOC: ERS 01:27 | DX: Z46.59 Encounter for fitting and adjustment of other gastrointestinal appliance and device (principal); I25.2 Old myocardial infarction; E11.9 Type 2 diabetes mellitus without complications; I10 Essential (primary) hypertension; E78.5 Hyperlipidemia, unspecified | CPT/HCPCS: 74018; 99283 ==